=== PATIENT | female | born 1990 | race Caucasian/White ===

== ENCOUNTER 2017-09-11 09:23 | Emergency (ER) | payer MEDICAID, OTHER ==
--- NOTE | 2017-09-11 10:01 | UC ---
Throat Pain/Nasal Travon HPI - HPI Summary HPI Summary: sinus pain and pressure x 1 day + nasal congestion, pnd , cough no fever, no chills, no body aches - History of Current Complaint Chief Complaint: UCRespiratory Stated Complaint: SINUS Time Seen by Provider: 09/11/17 09:58 Hx Obtained From: Patient Hx Last Menstrual Period: 08/31/17 ?: No Onset/Duration: Gradual Onset, Lasting Days - 1, Still Present Severity: Moderate Pain Intensity: 5 Cough: Nonproductive Associated Signs & Symptoms: Positive: Sinus Discomfort, Nasal Discharge. Negative: Wheezing, Fever, Vomiting, Rash - Allergies/Home Medications Allergies/Adverse Reactions: Allergies Allergy/AdvReac Type Severity Reaction Status Date / Time No Known Allergies Allergy Verified 09/11/17 09:47 Home Medications: Home Medications D-Methorphan/PE/Acetaminophen [Cold/Flu Relief] 1 liq PO PRN 09/11/17 [History] PMH/Surg Hx/FS Hx/Imm Hx Previously Healthy: Yes - Surgical History Surgical History: Yes Surgery Procedure, Year, and Place: C-[facility], 2 - Family History Known Family History: Negative: Diabetes - Social History Alcohol Use: Occasionally Substance Use Type: None Smoking Status (MU): Heavy Every Day Tobacco Smoker Type: Cigarettes Amount Used/How Often: 1/2 PPD Review of Systems Constitutional: Negative Skin: Negative ENT: Sore Throat, Ear Ache, Nasal Discharge Respiratory: Cough Cardiovascular: Negative Gastrointestinal: Negative Is Patient Immunocompromised?: No All Other Systems Reviewed And Are Negative: Yes Physical Exam Triage Information Reviewed: Yes Appearance: Well-Appearing, No Pain Distress, Well-Nourished Vital Signs: Initial Vital Signs Temp 98 F 09/11/17 09:48 Pulse 87 09/11/17 09:48 Resp 16 09/11/17 09:48 BP 116/65 09/11/17 09:48 Pulse Ox 99 09/11/17 09:48 Vital Signs Reviewed: Yes Eye Exam: Normal Eyes: Positive: Conjunctiva Clear ENT: Positive: Normal ENT inspection, Hearing grossly normal, Pharynx normal, Nasal congestion, TMs normal. Negative: Nasal drainage, TM bulging, TM dull, TM red, Tonsillar swelling, Tonsillar exudate, Sinus tenderness Neck: Positive: Supple, Nontender, No Lymphadenopathy Respiratory: Positive: Chest non-tender, Lungs clear, Normal breath sounds, No respiratory distress Cardiovascular: Positive: RRR, No Murmur, Pulses Normal Throat Pain/Nasal Course/Dx - Differential Dx/Diagnosis Provider Diagnoses: URI Discharge - Discharge Plan Condition: Stable Disposition: HOME Patient Education Materials: Upper Respiratory Infection (DC) Referrals: No Primary Care Phys,NOPCP [Primary Care Provider] - If Needed
== END 2017-09-11 10:12 | disposition home or self-care (01) ==
LOC: UCCORT 09:23
DX: J06.9 Acute upper respiratory infection, unspecified (principal); F17.210 Nicotine dependence, cigarettes, uncomplicated
CPT/HCPCS: 99201; G0463

== ENCOUNTER 2018-05-10 17:34 | Emergency (ER) | payer OTHER ==
[2018-05-10 17:54] VITALS: BP 145/89
--- NOTE | 2018-05-10 18:34 | UC ---
Skin Complaint HPI - HPI Summary HPI Summary: 28 y/o female presents to the urgent care c/o a rash w/ a honey crusting discharge in her RT eyebrow, left cheek, neck and around lips for the past 3 days. Pt reports mild pain 2/10 at touch w/ itchiness and swelling. She states her daughter had Impetigo for 2 weeks. Pt applied her daughter's cream yesterday , but then thought may be she shouldn't be using it. Pt denies fever, SOB, chest pain, abdominal pain, N/V/D. - History of Current Complaint Chief Complaint: UCSkin Time Seen by Provider: 05/10/18 18:30 Stated Complaint: SKIN COMPLAINT Hx Obtained From: Patient Hx Last Menstrual Period: 04/16/18 ?: No Onset/Duration: Gradual Onset, Lasting Days - 3 days, Still Present, Worse Since - today Skin Exposure Onset/Duration: Days Ago - 3 days Timing: Constant Onset Severity: Mild Current Severity: Mild Pain Intensity: 2 Pain Scale Used: 0-10 Numeric Location: Discrete - left side of her face and around mouth Character: Redness, Painful Aggravating Factor(s): Touch Alleviating Factor(s): OTC Meds Associated Signs & Symptoms: Positive: Rash - left side of face and around mouth , Drainage - yellowish crusting, Tenderness. Negative: Fever, Chills Related History: Other: - Daughter w/ impetigo - Allergy/Home Medications Allergies/Adverse Reactions: Allergies Allergy/AdvReac Type Severity Reaction Status Date / Time No Known Allergies Allergy Verified 05/10/18 17:50 Home Medications: Home Medications Oral Contraceptive 1 tab PO DAILY 05/10/18 [History] Review of Systems Constitutional: Negative Skin: Rash - left side of face and around mouth w/ honey crusting drainage Eyes: Negative ENT: Negative Respiratory: Negative Cardiovascular: Negative Gastrointestinal: Negative Genitourinary: Negative Motor: Negative Neurovascular: Negative Musculoskeletal: Negative Neurological: Negative Psychological: Negative Is Patient Immunocompromised?: No All Other Systems Reviewed And Are Negative: Yes PMH/Surg Hx/FS Hx/Imm Hx Previously Healthy: Yes Respiratory History: Asthma - Surgical History Surgical History: Yes Surgery Procedure, Year, and Place: [facility], 2 - Family History Known Family History: Positive: Unknown - Pt is adopted Negative: Diabetes - Social History Occupation: Employed Full-time Lives: With Family Alcohol Use: Occasionally Substance Use Type: None Smoking Status (MU): Heavy Every Day Tobacco Smoker Type: Cigarettes Amount Used/How Often: 1/2 PPD Physical Exam - Summary Physical Exam Summary: Vital Signs Reviewed: Yes General: well developed, well nourished female sitting in the examining table w/ o any apparent distress. Eyes: Positive: Conjunctiva Clear - PERRLA, EOMI ENT: Positive: Normal ENT inspection, Hearing grossly normal, Pharynx normal, TMs normal Neck: Positive: Supple, Nontender, No Lymphadenopathy Respiratory: Positive: Chest nontender, Lungs clear, Normal breath sounds Cardiovascular: Positive: RRR, No Murmur, Pulses Normal Abdomen Description: Positive: Nontender, No Organomegaly, Soft. Negative: CVA Tenderness (R), CVA Tenderness (L) Bowel Sounds: Positive: Present Musculoskeletal: Positive: Strength Intact, ROM Intact, No Edema Neurological Exam: Normal Psychological Exam: Normal Skin: Positive: rashes - Positive erythematous eruption w/ honey crusting yellowish drainage on the left side of face, forehead , around mouth and Rt side of neck, warm to touch, discrete swelling and tender to palpation. Triage Information Reviewed: Yes Vital Signs: Initial Vital Signs Temp 97.8 F 05/10/18 17:48 Pulse 95 05/10/18 17:48 Resp 14 05/10/18 17:48 BP 145/89 05/10/18 17:48 Pulse Ox 99 05/10/18 17:48 Course/Dx - Course Course Of Treatment: 28 y/o female presents to the urgent care c/o a rash w/ a honey crusting discharge in her RT eyebrow, left cheek, neck and around lips for the past 3 days. Pt reports mild pain 2/10 at touch w/ itchiness and swelling. She states her daughter had Impetigo for 2 weeks. Pt applied her daughter's cream yesterday, but then thought may be she shouldn't be using it. Pt denies fever, SOB, chest pain, abdominal pain, N/V/D. Hx obtained. Pt w/ Impetigo on her left side of face and around mouth on examination. Pt Rx Bactroban topical cream and Benadryl PO to alleviate symptoms. Advised to encourage hand washin gto avoid spread. Pt's BP is elevated today advised to decrease salt in diet, monitor BP and f/u with PCP for further management. D/C instruction sexplained. Pt understood and agreed w/ plan of care. - Differential Diagnoses - Skin Complaint Differential Diagnoses: Abscess, Cellulitis, Contact Dermatitis, Impetigo, Local Allergic Reaction, MRSA, Urticaria, Varicella Zoster - Diagnoses Provider Diagnoses: 1- Impetigo on left side of face. 2- Uncontrolled HTN Discharge - Sign-Out/Discharge Documenting (check all that apply): Patient Departure - home All imaging exams completed and their final reports reviewed: No Studies - Discharge Plan Condition: Stable Disposition: HOME Prescriptions: diPHENhydraMINE PO* [Benadryl PO 25 MG TAB*] 25 mg PO Q6H PRN #30 tab PRN Reason: pruritus Mupirocin 2% OINT* [Bactroban 2 % Oint*] 1 applic TOPICAL BID #1 tube Patient Education Materials: Impetigo (ED), Low-Sodium Diet (ED) Forms: *Work Release Referrals: LEE ANN Vargas [Primary Care Provider] - 3 Days Additional Instructions: 1-Please apply medication as directed. 2-Take Benadryl PO as directed to alleviate itchiness. 3-If symptoms do not improve or worsen please f/u with your PCP or return to the urgent care in 3 days for further evaluation and treatment. 4-Your BP is elevated today. please decrease salt in your diet, monitor BP and if it continues to be elevated please f/u with your PCP for further management - Billing Disposition and Condition Condition: STABLE Disposition: Home
== END 2018-05-10 18:57 | disposition home or self-care (01) ==
LOC: UCCORT 17:34
DX: L01.00 Impetigo, unspecified (principal); I10 Essential (primary) hypertension; F17.210 Nicotine dependence, cigarettes, uncomplicated
CPT/HCPCS: 99212; G0463

== ENCOUNTER 2019-05-24 13:41 | Emergency (ER) | payer BC, OTHER ==
--- NOTE | 2019-05-24 14:17 | UC ---
Respiratory Complaint HPI - HPI Summary HPI Summary: 29-year-old female with history of asthma presents to urgent care for complaints of shortness of breath. States she has had a nonproductive cough for the past 2 weeks. Last week she started developing some intermittent wheezing. She was evaluated by her primary care provider yesterday for a bilateral plantar fasciitis and they prescribed her an albuterol inhaler which she states she has been using 3 or 4 times a day. Today about 3 hours prior to arrival states she started feeling more short of breath. She left work, felt lightheaded, nauseous, began hyperventilating, and developed numbness and tingling in her fingers just prior to arrival. She also notes that she has had some mild nasal congestion and chills. She is a smoker and smokes half a pack a day. Denies fever, ear pain, sore throat, chest pain, palpitations, diaphoresis, abdominal pain, vomiting, or diarrhea. - History of Current Complaint Chief Complaint: UCRespiratory Stated Complaint: SHORTNESS OF BREATH, DIZZY Time Seen by Provider: 05/24/19 14:11 Hx Obtained From: Patient Hx Last Menstrual Period: 1 1/2 weeks ago Pain Intensity: 6 - Allergies/Home Medications Allergies/Adverse Reactions: Allergies Allergy/AdvReac Type Severity Reaction Status Date / Time adhesive tape Allergy Rash Verified 05/24/19 13:44 Home Medications: Home Medications Albuterol HFA INHALER* [Ventolin HFA Inhaler*] 1 - 2 puff INH Q4H PRN 05/24/19 [ History Confirmed 05/24/19] Ibuprofen TAB* [Advil TAB*] 600 mg PO ONCE PRN 05/24/19 [History Confirmed 05/24] PMH/Surg Hx/FS Hx/Imm Hx Respiratory History: Asthma Psychological History: Anxiety, Other - OCD - Surgical History Surgical History: Yes Surgery Procedure, Year, and Place: [facility], 2. endometriosis with hernia repair. - Family History Known Family History: Positive: Unknown - Pt is adopted - Social History Occupation: Employed Full-time Lives: Alone Alcohol Use: Occasionally Substance Use Type: None Smoking Status (MU): Heavy Every Day Tobacco Smoker Type: Cigarettes Amount Used/How Often: 1/2 PPD Review of Systems All Other Systems Reviewed And Are Negative: Yes Constitutional: Positive: Chills. Negative: Fever, Fatigue Skin: Negative: Rash Eyes: Negative: Drainage, Eye Redness ENT: Positive: Nasal Discharge, Sinus Congestion. Negative: Sore Throat, Ear Ache, Sinus Pain/Tenderness Respiratory: Positive: Shortness Of Breath, Cough, Other - Wheezing Cardiovascular: Negative: Palpitations, Chest Pain Gastrointestinal: Positive: Nausea. Negative: Abdominal Pain, Vomiting, Diarrhea Genitourinary: Positive: Negative Musculoskeletal: Positive: Negative Neurological: Positive: Negative Is Patient Immunocompromised?: No Physical Exam - Summary Physical Exam Summary: GENERAL APPEARANCE: Well developed, well nourished, alert and cooperative, and appears to be in no acute distress. EYES: Conjunctiva clear. No drainage. EARS: External auditory canals and tympanic membranes clear, hearing grossly intact. NOSE: No nasal discharge. THROAT: Pharyngeal cobblestoning. No tonsilar inflammation, swelling, exudate, or lesions. Uvula midline. NECK: Neck supple, non-tender without lymphadenopathy. CARDIAC: Normal S1 and S2. No S3, S4 or murmurs. Rhythm is regular. There is no peripheral edema, cyanosis or pallor. Extremities are warm and well perfused. Capillary refill is less than 2 seconds. Peripheral pulses intact. LUNGS: Clear to auscultation without rales, rhonchi, wheezing or diminished breath sounds. Loose non-productive cough. ABDOMEN: Positive bowel sounds. Soft, nondistended, nontender. No guarding or rebound. No masses or hepatosplenomegally. MUSKULOSKELETAL: ROM intact to all extremities. No joint erythema or tenderness. Normal muscular development. Normal gait. SKIN: Skin normal color, texture and turgor with no lesions or eruptions. Triage Information Reviewed: Yes Vital Signs: Initial Vital Signs Temp 98.5 F 05/24/19 13:45 Pulse 98 05/24/19 13:45 Resp 32 05/24/19 13:45 BP 108/70 05/24/19 13:45 Pulse Ox 100 05/24/19 13:45 Vital Signs Reviewed: Yes Diagnostics - Radiology No standard instances Radiology Interpretation Completed By: Radiologist Summary of Radiographic Findings: Order Information: CHEST PA LAT 2 VWS. INDICATION: Shortness of breath. Cough. Tobacco use. COMPARISON: No relevant prior exams available on the [facility] for comparison. TECHNIQUE: Dual energy PA and lateral views of the chest were obtained. REPORT: Clear lungs and pleural spaces. Negative for pneumothorax. The heart, pulmonary vasculature, and mediastinal contours are unremarkable. Unremarkable osseous structures and soft tissue contours. IMPRESSION: #. No evidence for acute intrathoracic disease. - EKG Cardiac Rate: NL - Rate 86 Cardiac Rhythm: Sinus: Normal Ectopy: None ST Segment: Normal Summary of EKG Findings: NSR rate of 86 without ectopy, SANCHEZ, or T-wave abnormalities. Respiratory Course/Dx - Course Course Of Treatment: 29-year-old female with history of asthma presents to urgent care for complaints of shortness of breath. States she has had a nonproductive cough for the past 2 weeks. Last week she started developing some intermittent wheezing. She was evaluated by her primary care provider yesterday for a bilateral plantar fasciitis and they prescribed her an albuterol inhaler which she states she has been using 3 or 4 times a day. Today about 3 hours prior to arrival states she started feeling more short of breath. She left work, felt lightheaded, nauseous, began hyperventilating, and developed numbness and tingling in her fingers just prior to arrival. She also notes that she has had some mild nasal congestion and chills. She is a smoker and smokes half a pack a day. Denies fever, ear pain, sore throat, chest pain, palpitations, diaphoresis, abdominal pain, vomiting, or diarrhea. Afebrile. Patient was tachypneic and hyperventilating at triage at a rate of 32 otherwise vital signs were stable. 12-lead EKG showed a normal sinus rhythm at a rate of 86 without ectopy, ST elevation, or T-wave abnormalities. On exam patient had mild nasal congestion, pharyngeal cobblestoning without tonsillar swelling or exudate, no cervical lymphadenopathy, she was in no acute respiratory distress and her respiratory rate had slowed to 18, bilateral breath sounds were clear, general loose nonproductive cough, and remainder of exam was unremarkable. Chest x-ray showed no acute cardiopulmonary pathology. Reviewed the results with the patient. Recommend treatment for an acute bronchitis. Considering the duration of her symptoms, worsening of symptoms, and her smoking status we will treat her with a course of azithromycin as well as symptomatic treatment including continued use of her albuterol inhaler and Tessalon Perles one capsule every 8 hours as needed for cough. She is to follow up with her primary care provider in 2-3 days for recheck of her symptoms. Anticipatory guidance warning symptoms were reviewed with the patient. Verbalizes understanding and agrees with plan of care. - Differential Dx/Diagnosis Differential Diagnosis/HQI/PQRI: Bronchitis, Lower Resp Infection, Pulmonary Embolism Provider Diagnosis: Acute bronchitis Discharge ED - Sign-Out/Discharge Documenting (check all that apply): Patient Departure All imaging exams completed and their final reports reviewed: Yes - Discharge Plan Condition: Stable Disposition: HOME Prescriptions: Azithromyxin SUMAN (NF) [Z-Suman (Zithromax) 250 mg tabs #6] 2 tab PO .TODAY, THEN 1 DAILY #6 tab Benzonatate CAP* [Tessalon 100 MG CAP*] 100 mg PO TID PRN #21 cap PRN Reason: Cough Patient Education Materials: Acute Bronchitis (ED) Referrals: LEE ANN Vargas [Primary Care Provider] - Additional Instructions: The EKG and chest x-ray performed in the clinic today were normal. Your history and exam are consistent with acute bronchitis. Considering the duration and worsening of symptoms we will start you on an antibiotic. Take azithromycin 2 tabs today and then 1 tab a day for the next 4 days. Continue to use your albuterol inhaler as directed for shortness of breath or wheezing. Get plenty of rest. Drink plenty of fluids. Run a cool mist humidifer in your room at night. Take over the counter acetaminophen (Tylenol) or ibuprofen (Advil, Motrin) according to directions as needed for pain or fever. Take Tessalon Perles 1 cap every 8 hours as needed for cough. Follow up with your primary care provider in 2-3 days for a recheck of your symptoms. Seek immediate medical attention in the emergency room if you have fever greater than 100.5 F despite taking acetaminophen or ibuprofen, have chest pain , difficulty breathing, or have any worsening of symptoms. - Billing Disposition and Condition Condition: STABLE Disposition: Home
[2019-05-24 15:12] VITALS: BP 123/32
== END 2019-05-24 15:29 | disposition home or self-care (01) ==
LOC: UCCORT 13:41
DX: J20.9 Acute bronchitis, unspecified (principal); J45.909 Unspecified asthma, uncomplicated; J34.89 Other specified disorders of nose and nasal sinuses; R11.0 Nausea; F17.210 Nicotine dependence, cigarettes, uncomplicated; Z91.09 Other allergy status, other than to drugs and biological substances; Z79.899 Other long term (current) drug therapy; F42.9 Obsessive-compulsive disorder, unspecified
CPT/HCPCS: 71046; 93005; 99212; G0463